=== PATIENT | female | born 1965 | race Caucasian/White ===

== ENCOUNTER 2017-08-28 11:39 | Emergency (ER) | payer BC, OTHER ==
--- NOTE | 2017-08-28 12:04 | Emergency Department Record ---
History of Present Illness - General Chief complaint: Pain Stated complaint: knee pain Time Seen by Provider: 08/28/17 11:54 Source: Patient Mode of Arrival: Ambulatory Limitations: No limitations - History of Present Illness Initial comments: 51 yo female presents with anterior knee pain in the area of the patella for 2 days. No posterior pain, calf pain or thigh pain. It is tender to palpation at the patella, quads tendon, and patellar tendon. No swelling. No warmth. No redness. She denies any injury. She was on a prolonged car ride. No calf pain , swelling, or discomfort. No popliteal tenderness, pain, or swelling. No history of DVT. No cough, chest pain or other recent changes in her health. The patellar pain occurs with bending and palpation. No knee disease history. Onset/Timin -: Days(s) Location: Left History of Same: No Radiation: None Severity scale (1-10): 6 Quality: Aching, Dull, Sharp Consistency: Intermittent Improves with: Nothing Worsens with: Nothing Associated Symptoms: Denies other symptoms - Related Data Home Medications Medication Instructions Recorded Confirmed Last Taken Fexofenadine/Pseudoephedrine 1 each PO DAILY 08/28/17 08/28/17 Unknown [Blanche-D 24 Hour Tablet] Fluticasone Propionate [Flonase] 2 spray EACH NARES DAILY 08/28/17 08/28/1706/11 20:00 Ibuprofen 200 mg Tablet [Motrin 200 mg PO Q8H PRN 08/28/17 08/28/17 Unknown 200Mg] Allergies Allergy/AdvReac Type Severity Reaction Status Date / Time caffeine AdvReac Severe RAPID Verified 08/28/17 12:16 HEART RATE Travel Screening - Travel/Exposure Within Last 30 Days Have you traveled within the last 30 days?: No - Travel/Exposure Within Last Year Have you traveled outside the [place] in the last year?: No - Additonal Travel Details Have you been exposed to anyone with a communicable illness?: No - Travel Symptoms Symptom Screening: None Review of Systems Constitutional: Denies: Chills, Fever, Weakness Eyes: Denies: Eye discharge ENT: Denies: Congestion, Throat pain Respiratory: Denies: Cough, Dyspnea, Hemoptysis, Wheezes Cardiovascular: Denies: Chest pain, Edema, Palpitations, Syncope Endocrine: Denies: Fatigue Gastrointestinal: Denies: Abdominal pain, Diarrhea, Nausea, Vomiting Genitourinary: Denies: Dysuria, Urgency Musculoskeletal: Reports: As per HPI, Arthralgia. Denies: Back pain, Joint swelling, Myalgia, Neck pain Skin: Denies: Bruising, Change in color, Rash Neurological: Denies: Headache, Numbness, Weakness Psychiatric: Denies: Anxiety Hematological/Lymphatic: Denies: Blood Clots, Easy bleeding, Easy bruising, Swollen glands Past Medical History - SOCIAL HISTORY Smoking Status: Current every day smoker Alcohol Use: Rare Drug Use: None - RESPIRATORY Hx Respiratory Disorders: No - CARDIOVASCULAR Hx Cardio Disorders: No - NEURO Hx Neuro Disorders: No - GI Hx GI Disorders: No - Hx Genitourinary Disorders: No - ENDOCRINE Hx Endocrine Disorders: No - MUSCULOSKELETAL Hx Musculoskeletal Disorders: Yes - PSYCH Hx Psych Problems: No - HEMATOLOGY/ONCOLOGY Hx Hematology/Oncology Disorders: No Family Medical History Any Significant Family History?: Yes Hx Diabetes: Brother/Sister Physical Exam - General General Appearance: Alert, Oriented x3, Cooperative, No acute distress Limitations: No limitations - Head Head exam: Normal inspection - Eye Eye exam: Normal appearance. negative: Conjunctival injection, Scleral icterus - ENT ENT exam: Normal exam, Mucous membranes moist Ear exam: Normal external inspection Nasal Exam: Normal inspection Mouth exam: Normal external inspection - Neck Neck exam: Normal inspection - Respiratory Respiratory exam: Normal lung sounds bilaterally. negative: Respiratory distress - Cardiovascular Cardiovascular Exam: Regular rate, Normal rhythm, Normal heart sounds - GI/Abdominal GI/Abdominal exam: Soft - Rectal Rectal exam: Deferred - exam: Deferred - Extremities Extremities exam: Normal inspection, Full ROM, Normal capillary refill, Tenderness (anterior at the patella, quads insertion site and patellar tenden, no effusion), Other (NO calf, popliteal, or thigh tenderness, swelling or pain) . negative: Calf tenderness, Joint swelling, Pedal edema - Back Back exam: Reports: Normal inspection - Neurological Neurological exam: Alert, Oriented X3 - Psychiatric Psychiatric exam: Normal affect, Normal mood. negative: Agitated, Anxious - Skin Skin exam: Dry, Intact, Normal color, Warm Course Vital Signs 08/28/17 11:44 Temperature 98.9 F Pulse Rate 79 Respiratory 16 Rate Blood Pressure 112/56 Pulse Ox 99 - Reevaluation(s) Reevaluation #1: All the symptoms are anterior at the patella. NO signs or symptoms to suggest DVT. 08/28/17 12:04 08/28/17 13:14 The knee XR was negative for acute process I discussed this with the patient and the possible involvement 08/28/17 13:39 The XR was negative The examination is consistent with tendonitis. No signs of DVT. We discussed home care with rest and ice She is to call her PCP for follow up MRI if the patellar knee pain continues She was told to return if she has posterior pain, calf pain, swelling. Disposition Disposition: Discharge Clinical Impression: Patellar tendonitis of left knee Disposition: Home, Self-Care Condition: (1) Good Instructions: Patellar Tendinitis (ED) Additional Instructions: Return to ED if your symptoms worsen or if you have any concerns. Follow-up with your family doctor for the next available appointment. Review the final Emergency Record and test results with your doctor on follow up You may need a follow up knee MRI if the pain continues Return if you have any calf pain, pain behind the knee, or thigh pain Forms: Patient Portal Access Time of Disposition: 13:41 Quality - Quality Measures Quality Measures: N/A - Blood Pressure Screening Does Patient Have Any of the Following: No Blood Pressure Classification: Normal BP Reading Systolic Measurement: 118 Diastolic Measurement: 61 Screening for High Blood Pressure: < Normal BP, F/U Not Required > [[id number]]
--- NOTE | 2017-08-30 18:50 | RADIOLOGY REPORT ---
EXAM: KNEE, LEFT 4 VIEWS HISTORY: PAIN. TECHNIQUE: Four views of the left knee were performed. FINDINGS: No evidence of fracture or dislocation. No lytic or blastic lesion. No radiopaque loose body. No joint effusion. IMPRESSION: NEGATIVE LEFT KNEE EXAMINATION. JOB NUMBER: [id number] MTDD
== END 2017-08-28 13:54 | disposition home or self-care (01) ==
LOC: ER 11:39
DX: M76.52 Patellar tendinitis, left knee (principal); M25.562 Pain in left knee; F17.210 Nicotine dependence, cigarettes, uncomplicated
CPT/HCPCS: 99283